=== PATIENT | female | born 1970 | race African-American/Black ===

== ENCOUNTER 2024-12-02 09:43 | Inpatient (IN) | payer SELFPAY ==
[2024-12-02] MEDS ORDERED: CEFAZOLIN 2 GM VIAL ONE (10:40)
[2024-12-02] MEDS ORDERED: HYDROcodone/Acetaminophen 10/325 mg Tablet ONE (10:40)
[2024-12-02] MEDS ORDERED: Boostrix 0.5 ML (Tdap) VIAL (>/=7 yrs of age) ONE (10:40)
[2024-12-02] MEDS ORDERED: Lidocaine 1% w/Epinephrine 1:100K 20 ML VIAL ONE (10:50)
[2024-12-02] MEDS ORDERED: Rabies Immune Globulin/PF 300 UNITS/ML VIAL ONE (12:24)
[2024-12-02] MEDS ORDERED: Rabies Vaccine Human 2.5 UNITS VIAL ONE (12:24)
[2024-12-05] MEDS ORDERED: Iopamidol-370 76% 500 ML MDV (1 ML CHARGE) ONE (11:09)
[2024-12-05 12:42] LABS: #Basophils Less than 0.03 10x3/uL (0.0-0.2); #Eosinophils Less than 0.03 10x3/uL (0.0-0.7); %Basophils 0.1 % (0.0-1.0); %Eosinophils 0.1 % (0.0-10.0); %Monocytes 9.6 % (0.0-10.0); %Neutrophils 57.7 % (42.0-75.0); Hematocrit 41.7 % (36.0-47.0); Hemoglobin 14.1 g/dL (12.0-16.0); Mean Corpuscular HGB CONC 33.8 g/dL (32.0-36.0); Mean Corpuscular Hemoglobin 28.8 pg (27.0-31.0); Mean Corpuscular Volume 85.1 fL (78.0-98.0); Platelet Count 120 10x3/uL (130-400); RBC Distribution Width 13.1 % (11.5-14.5)
[2024-12-05 12:57] LABS: ALT (SGPT) 34 U/L (Less than 34); AST (SGOT) 58 U/L (11-34); Albumin 3.5 g/dL (3.1-4.5); Alkaline Phosphatase 71 U/L (40-110); Anion Gap 17 mmol/L (10-20); BUN (Urea Nitrogen) 8 mg/dL (9.8-20.1); Bilirubin, Total 0.3 mg/dL (0.3-1.2); Calc. Creatinine Clearance 0 mL/min (70-130); Calcium 9.9 mg/dL (7.8-10.44); Carbon Dioxide 20 mmol/L (22-29); Chloride 108 mmol/L (98-107); Estimated GFR 107; Globulin 4.7 g/dL (2.4-3.5); Glucose 100 mg/dL (70-105); Potassium 3.8 mmol/L (3.5-5.1); Protein, Total 8.2 g/dL (6.0-8.3); Sodium 141 mmol/L (136-145)
[2024-12-05 13:16] LABS: Platelet Adequacy Comment Platelets Decreased; Polychromasia SLIGHT = 2-3 cells HPF (0-2); RBC Morphology Within Normal Limits
[2024-12-05 17:14] LABS: Lactic Acid 0.67 mmol/L (0.50-2.20)
[2024-12-05] MEDS ORDERED: Lorazepam 2 MG/ML VIAL SLOW IVP PRN (18:01)
[2024-12-05] MEDS ORDERED: Ondansetron ODT 4 MG TAB PO PRN (18:01)
[2024-12-05] MEDS ORDERED: Ondansetron PF 4 MG/2 ML Vial IVP PRN (18:01)
[2024-12-05] MEDS ORDERED: Morphine 2 MG/ML VIAL SLOW IVP PRN (18:01)
[2024-12-05] MEDS: Vancomycin (BATCH) 2 GM in Premix 1 BAG IVPB SCH (18:23)
[2024-12-05 18:27] VITALS: BMI 26.8
[2024-12-05] MEDS ORDERED: Lorazepam 1 MG TAB PO PRN (18:43)
[2024-12-05] MEDS: Rabies Vaccine Human 2.5 UNITS VIAL IM ONE (18:43)
[2024-12-05] MEDS: Rabies Immune Globulin/PF 300 UNITS/ML VIAL IM SCH (18:43)
[2024-12-05] MEDS ORDERED: Lorazepam 2 MG/ML VIAL IM PRN (18:43)
[2024-12-05] MEDS: cefTRIAXone\\ROCEPHIN 2 GM in Sodium Chloride 0.9% 100 ML IVPB SCH ×2 (20:15→22:04)
[2024-12-05] MEDS: Divalproex Sodium DR 500 MG TAB PO SCH (20:20)
[2024-12-05] MEDS: Thiamine HCl 200 MG/2 ML VIAL SLOW IVP SCH ×2 (20:20→22:05)
[2024-12-05] MEDS: Clindamycin/D5W 300 MG/50 ML BAG IVPB SCH (21:35)
[2024-12-05] MEDS: Ketorolac Tromethamine 30 MG (1 mL) VIAL IVP PRN (22:24)
[2024-12-06] MEDS ORDERED: Vancomycin (BATCH) 1.25 GM in Premix 1 BAG IVPB SCH (03:00)
[2024-12-06 04:09] LABS: #Basophils Less than 0.03 10x3/uL (0.0-0.2); %Basophils 0.2 % (0.0-1.0); %Eosinophils 0.4 % (0.0-10.0); %Lymphocytes 34.3 % (21.0-51.0); %Monocytes 13.6 % (0.0-10.0); %Neutrophils 50.9 % (42.0-75.0); Hemoglobin 12.2 g/dL (12.0-16.0); Mean Corpuscular HGB CONC 32.1 g/dL (32.0-36.0); Mean Corpuscular Hemoglobin 28.5 pg (27.0-31.0); Mean Corpuscular Volume 88.8 fL (78.0-98.0); Mean Platelet Volume 10.9 fL (7.4-10.4); Platelet Count 106 10x3/uL (130-400); RBC Distribution Width 13.5 % (11.5-14.5); Red Blood Cell (RBC) Count 4.28 mill/uL (4.20-5.40)
[2024-12-06 04:34] LABS: Vancomycin, Random 14.7 ug/mL (See Comment)
[2024-12-06 04:36] LABS: Anion Gap 14 mmol/L (10-20); BUN (Urea Nitrogen) 13 mg/dL (9.8-20.1); Calc. Creatinine Clearance 103 mL/min (70-130); Calcium 9.2 mg/dL (7.8-10.44); Carbon Dioxide 21 mmol/L (22-29); Chloride 109 mmol/L (98-107); Estimated GFR 102; Glucose 87 mg/dL (70-105); Potassium 3.7 mmol/L (3.5-5.1); Sodium 140 mmol/L (136-145)
[2024-12-06] MEDS: Vancomycin (BATCH) 1.25 GM in Premix 1 BAG IVPB SCH (05:41)
[2024-12-06] MEDS: Multivit, Therapeutic 1 TAB PO SCH (08:59)
[2024-12-06] MEDS: Folic Acid 1 MG TAB PO SCH (08:59)
[2024-12-06] MEDS: Vancomycin 1 GM in Premix 1 BAG IVPB SCH (17:10)
[2024-12-06] MEDS ORDERED: Lorazepam 1 MG TAB PO PRN (18:43)
[2024-12-06] MEDS: Clindamycin 150 MG CAP PO SCH (19:36)
[2024-12-06] MEDS: Acetaminophen 325 MG TAB PO PRN (19:36)
[2024-12-06] MEDS: Lidocaine 1% PF 5 ML VIAL FS SCH (19:37)
[2024-12-06] MEDS: cefTRIAXone (ROCEPHIN) 2 GM VIAL IM SCH (19:37)
[2024-12-06 23:23] VITALS: BMI 26.8
[2024-12-07 06:18] LABS: #Basophils Less than 0.03 10x3/uL (0.0-0.2); %Basophils 0.1 % (0.0-1.0); %Eosinophils 0.3 % (0.0-10.0); %Lymphocytes 28.9 % (21.0-51.0); %Monocytes 13.5 % (0.0-10.0); %Neutrophils 56.9 % (42.0-75.0); Hematocrit 35.3 % (36.0-47.0); Hemoglobin 11.8 g/dL (12.0-16.0); Mean Corpuscular HGB CONC 33.4 g/dL (32.0-36.0); Mean Corpuscular Hemoglobin 28.8 pg (27.0-31.0); Mean Corpuscular Volume 86.1 fL (78.0-98.0); Mean Platelet Volume 10.9 fL (7.4-10.4); Platelet Count 124 10x3/uL (130-400); RBC Distribution Width 13.2 % (11.5-14.5)
[2024-12-07 06:30] LABS: Anion Gap 13 mmol/L (10-20); BUN (Urea Nitrogen) 15 mg/dL (9.8-20.1); Calc. Creatinine Clearance 117 mL/min (70-130); Calcium 8.8 mg/dL (7.8-10.44); Carbon Dioxide 23 mmol/L (22-29); Chloride 109 mmol/L (98-107); Estimated GFR 106; Glucose 97 mg/dL (70-105); Potassium 3.8 mmol/L (3.5-5.1); Sodium 141 mmol/L (136-145)
[2024-12-07] MEDS ORDERED: Piperacillin/Tazobactam 3.375 GM in Sodium Chloride 0.9% 100 ML IVPB SCH ×3 (07:15→14:00)
[2024-12-07 07:49] VITALS: TEMP 98.2
[2024-12-07] MEDS: Amoxicillin/Potassium Clav 875 MG TAB PO SCH (08:39)
[2024-12-07] MEDS: FLU (Fluarix Triv) TS24-25(6MOS UP)/PF 45 MCG/0.5 ML Syringe IM ONE (08:39)
[2024-12-07 10:47] VITALS: BP 133/70
[2024-12-07] MEDS: traMADol HCl 50 MG TAB PO SCH (10:51)
[2024-12-07] MEDS ORDERED: Lorazepam 1 MG TAB PO PRN (18:43)
[2024-12-08] MEDS ORDERED: Lorazepam 0.5 MG TAB PO PRN (18:43)
[2024-12-08] MEDS ORDERED: Thiamine 100 MG TAB PO SCH ×2 (18:45→21:00)
[2024-12-09] MEDS ORDERED: Rabies Vaccine Human 2.5 UNITS VIAL IM ONE (17:56)
== END 2024-12-07 12:17 | disposition home or self-care (01) | DRG 603 ==
LOC: ERS 09:43 → ER/OP 12-05 09:25 → T4-B 12-05 16:49
PROVIDERS: ADMIT Internal Medicine; ATTEND Family Medicine
PROC: 3E0334Z Introduction of Serum, Toxoid and Vaccine into Peripheral Vein, Percutaneous Approach (ICD-10-PCS; principal; 2024-12-02)
DX: L03.116 Cellulitis of left lower limb (principal); A28.0 Pasteurellosis; S81.852A Open bite, left lower leg, initial encounter; S81.831A Puncture wound without foreign body, right lower leg, initial encounter; S81.812A Laceration without foreign body, left lower leg, initial encounter; S81.851A Open bite, right lower leg, initial encounter; F17.210 Nicotine dependence, cigarettes, uncomplicated; W54.0XXA Bitten by dog, initial encounter; F17.200 Nicotine dependence, unspecified, uncomplicated; Z98.891 History of uterine scar from previous surgery; Z53.9 Procedure and treatment not carried out, unspecified reason; F10.10 Alcohol abuse, uncomplicated; D69.6 Thrombocytopenia, unspecified; Z23 Encounter for immunization
CPT/HCPCS: 12002; 36415; 36416; 80048; 80053; 80202; 83605; 85025; 86141; 87040; 87070; 87077; 87081; 87205; 90375; 90471; 90675; 90715; 96372; 97139; J0696; J1885; J3370; J3411; J3490; Q9967

== ENCOUNTER → 2024-12-09 | Day surgery (SDC) | payer SELFPAY ==
[~2024-12-09] MED LIST: Rabies Vaccine Human 2.5 UNITS VIAL ONE
== END ==
LOC: ERS 13:34
PROVIDERS: ATTEND Radiology Vascular & Interventional Radiology
DX: Z29.14 Encounter for prophylactic rabies immune globulin (principal)
CPT/HCPCS: 90675